=== PATIENT | male | born 1990 | race Caucasian/White ===

== ENCOUNTER 2018-07-22 21:28 | Emergency (ER) | payer SELFPAY ==
[~2018-07-22] VITALS: Ht 182.9 cm; Wt 82.1 kg
[~2018-07-22 21:28] MED LIST: ATIVAN 1MG T1 MG/TAB PO; DOXYCYCLINE 10100 MG PO; MOTRIN 800800 MG/TAB PO
[2018-07-22 21:37] VITALS: BP 131/72; TEMP 97.6
[2018-07-22 22:12] LABS: COLLECTION METHOD CLEAN CATCH
[2018-07-22 22:17] LABS: MUCOUS Present /lpf; PH 5 (5-8); SQUAMOUS EPITHELIAL None Seen /hpf; URINE APPEARANCE Clear; URINE BACTERIA Rare /hpf; URINE BILIRUBIN Negative (NEGATIVE); URINE BLOOD Negative (NEGATIVE); URINE COLOR Yellow; URINE GLUCOSE Negative (NEGATIVE); URINE KETONE Negative (NEGATIVE); URINE LEUKOCYTE ESTERASE Negative (NEGATIVE); URINE NITRATE Negative (NEGATIVE); URINE PROTEIN(semi-quant) Negative (NEGATIVE); URINE RBC 0-2 /hpf; URINE UROBILINOGEN Negative (NEGATIVE)
[2018-07-22 22:25] LABS: TRICYCLIC ANTIDEPRESS URINE NEGATIVE
[2018-07-22 22:37] LABS: BASO % 0.5 % (0.0-2.0); EOS # 0.1 (0.0-0.7); EOS % 0.8 % (0-4.0); GRAN # 4.2 (1.4-6.5); GRAN % 50.8 % (42.2-75.2); HEMATOCRIT 41.9 % (42.0-52.0); HEMOGLOBIN 13.3 g/dl (13.5-18.0); LYMPH # 2.9 (1.2-3.4); LYMPH % 35.1 % (20.0-51.0); MEAN CELL VOLUME 92 fl (80.0-100.0); MEAN CORPUSCULAR HEMOGLOBIN 29 pg (27.0-31.0); MEAN CORPUSCULAR HGB CONC 32 g/dl (33.0-37.0); MEAN PLATELET VOLUME 9.8 fl (7.4-10.4); MONO % 12.2 % (1.7-9.3); PLATELET COUNT 199 K/mm3 (130-400); RED BLOOD COUNT 4.55 M/mm3 (4.20-5.60); REDCELL DISTRIBUTION WIDTH-CV 15.5 % (11.5-14.5)
[2018-07-22 22:50] LABS: ALANINE AMINOTRANSFERASE 124 U/L (21-72); ALKALINE PHOSPHATASE 50 U/L (50-136); ANION GAP 9 mmol/L (7-16); AST,SGOT 51 U/L (15-37); BLOOD UREA NITROGEN 21 mg/dL (9-20); CALCIUM 9.5 mg/dL (8.4-10.2); CARBON DIOXIDE 30 mmol/L (22-30); CHLORIDE 102 mmol/L (98-107); CREATININE, serum 0.87 mg/dL (0.66-1.25); GLUCOSE 86 mg/dL (74-106); POTASSIUM 4.2 mmol/L (3.4-5.0); SODIUM 140 mmol/L (137-145); TOTAL PROTEIN 6.6 gm/dL (6.4-8.2)
[2018-07-22 22:58] LABS: ACETAMINOPHEN < 10 ug/mL (10-30); ALCOHOL(ethanol),MEDICAL < 10 mg/dL; SALICYLATE < 1.0 mg/dL
[2018-07-23] MEDS ORDERED: AMOXICILLIN 8751 TAB PO (00:59)
[2018-07-23 01:10] VITALS: PULSE 90
== END 2018-07-23 01:10 | disposition home or self-care (01) ==
LOC: COL.ER 21:28
PROVIDERS: Nurse Practitioner
DX: S60.221A Contusion of right hand, initial encounter (principal); F15.10 Other stimulant abuse, uncomplicated; G40.909 Epilepsy, unspecified, not intractable, without status epilepticus; F17.210 Nicotine dependence, cigarettes, uncomplicated; Y04.0XXA Assault by unarmed brawl or fight, initial encounter

== ENCOUNTER 2021-06-02 11:14 | Emergency (ER) | payer SELFPAY ==
[~2021-06-02] VITALS: Ht 182.9 cm; Wt 79.5 kg
[~2021-06-02 11:14] MED LIST changes: +AMOXICILLIN 8751 TAB PO
[2021-06-02] MEDS ORDERED: ZITHROMAX Z PA250 MG PO (12:10)
[2021-06-02 12:36] VITALS: BP 112/69; PULSE 98; TEMP 98.2
== END 2021-06-02 12:36 | disposition home or self-care (01) ==
LOC: COL.ER 11:14
DX: J20.9 Acute bronchitis, unspecified (principal); G40.909 Epilepsy, unspecified, not intractable, without status epilepticus; F17.200 Nicotine dependence, unspecified, uncomplicated; Z20.822 Contact with and (suspected) exposure to COVID-19